=== PATIENT | female | born 1985 | race Hispanic/Latino ===

== ENCOUNTER 2024-12-27 08:48 | Emergency (ER) | payer SELFPAY ==
[2024-12-27 08:57] VITALS: BP 128/71
[2024-12-27 09:21] VITALS: BMI 21.5
--- NOTE | 2024-12-27 10:00 | ED.GENMED ---
History of Present Illness
General
Chief Complaint: Headache
Time Seen by Provider: 12/27/24 09:17
History of Present Illness
History of Present Illness:
39-year-old otherwise healthy female presents to the emergency department for evaluation of headache associated with dizziness and weakness ongoing for the past 7 days. She reports a history of frequent premenstrual headaches and states the pain
feels similar however does not typically have dizziness and weakness with this. Denies vertigo. No vision changes or diplopia. No chest pain or shortness of breath. No recent fevers or chills. Took acetaminophen this morning without improvement
Past History
Past History
ED Past Medical History: None
ED Past Surgical History:
Social History
Tobacco: Non-smoker
Alcohol: None
Personal: Single
Living: with family
Employment: Employed
Review of Systems
Review of Systems
Allergies reviewed?: Yes
All Other Systems: ROS reviewed and negative except as documented in HPI and ROS
Phy Exam
Physical Exam
Physical Exam:
GEN: Well appearing, NAD, WDWN
HEENT: Oral mucosa moist, no scleral icterus, no nasal congestion
Cardiac: Regular rate and rhythm, no murmurs
Lung: No respiratory distress, no tachypnea
MSK: No gross deformity or injuries
Skin: Good color, no pallor or jaundice, no rashes
Neuro: AO x3; CN II-XII grossly intact. BUE strength 5/5 in all rushing, sensation intact and symmetric. BLE strength 5/5 in all rushing, sensation intact and symmetric
Psych: Calm, cooperative
Course
Orders/Labs/Results
Orders:
Orders
12/27/24 09:59
0.9% Sodium Chloride 1000 ml [Nss] 1,000 ml IV BOLUS
Ketorolac [Toradol] 15 mg IV NOW STA
Metoclopramide [Reglan] 10 mg IV NOW STA
Test Result ONCE
12/27/24 10:20
Complete Blood Count/No Diff Urgent
Comprehensive Metabolic Panel Urgent
HCG, Serum Qualitative Screen Urgent
TSH Urgent
12/27/24 11:31
Add On- LAB Urgent
Tests Added?: TSH
Abnormal Lab Results
12/27/24
10:20
RBC 3.95 L 10^6/uL
(4.20-5.40)
Hgb 11.8 L g/dL
(12.0-16.0)
Hct 35.0 L %
(37.0-47.0)
MPV 10.8 H fL
(7.4-10.4)
Chloride 111 H mmol/L
(98-107)
Creatinine 0.5 L mg/dL
(0.6-1.0)
12/27/24 10:20
12/27/24 10:20
Vital Signs
Initial and Last Documented VS:
Initial Vital Signs
Temp Pulse Resp BP Pulse Ox
98.2 F 70 16 128/71 98
12/27/24 08:57 12/27/24 08:57 12/27/24 08:57 12/27/24 08:57 12/27/24 08:57
Last Documented Vital Signs
Temp Pulse Resp BP Pulse Ox
97.5 F 66 18 96/64 100
12/27/24 11:51 12/27/24 11:51 12/27/24 11:51 12/27/24 11:51 12/27/24 11:51
MDM/Problems Addressed
MDM/Problems Addressed:
Unclear etiology to the patient's lightheadedness, she is clinically well-appearing on exam, she has no abnormal neurologic findings and headache was easily treated with conventional migraine meds thus I have a low suspicion for central nervous
system lesion that would benefit from a CT. She has mild anemia however this appears to be comparable to past labs thus is not likely causative. Encourage primary care follow-up as an outpatient if symptoms continue. She did report improvement in
symptoms at time of discharge
*Critical Care Note
Total Time (30-74mins, 75-104mins- exclusive of procedures): Not Applicable
ED Attending Note
-
Portions of this chart may have been created with voice recognition software.� Occasional wrong word or��sound alike� substitutions may have occurred due to the inherent limitations of voice recognition software.
Discharge Plan
Departure
Patient Disposition: Home (Routine Discharge)
Date of Disposition: 12/27/24
Time of Disposition: 11:31
Patient with high blood pressure during this ER visit?: No
Discharge Problem:
Intermittent lightheadedness
Instructions: Dizziness in adults - ED discharge instructions
Prescriptions:
No Action
No Current Medications
0
Referrals:
Sadie Mann DO [Family Provider] -
Activity Restrictions/Additional Instructions:
Please follow-up with your primary care physician for further evaluation of your symptoms
Interventions
Interventions:
*Risk Screen - Suicide Last Done: 12/27/24 08:57
*General Assessment Last Done: 12/27/24 11:53
*Neglect/Abuse Screening Last Done: 12/27/24 08:57
*ED- Fall Risk Assessment Last Done: 12/27/24 11:53
*ED COVID-19 Vaccine History Last Done: 12/27/24 11:53
*Nursing Disposition Last Done: 12/27/24 11:53
ED- Neurological Assessment Last Done: 12/27/24 09:22
Discharge Date and Time
Discharge Date/Time: 12/27/24 11:57
Print Language: NEPALI
[2024-12-27] MEDS: NSS 1000 IV (10:21)
[2024-12-27] MEDS: TORADOL 15 MG IV (10:30)
[2024-12-27] MEDS: REGLAN 10 MG IV (10:30)
[2024-12-27 10:32] LABS: Hemoglobin 11.8 g/dL (12.0-16.0); Mean Corp Hgb Conc. 33.7 g/dL (33.0-37.0); Mean Corpuscular Hgb 29.9 pg (27.0-31.0); Mean Corpuscular Volume 88.6 fL (81.0-99.0); Mean Platelet Volume 10.8 fL (7.4-10.4); Platelet Count 172 10^3/uL (130-400); Red Blood Cell Count 3.95 10^6/uL (4.20-5.40); Red Cell Dist. Width 12.3 % (11.5-14.5); White Blood Cell Count 6.8 10^3/uL (4.8-10.8)
[2024-12-27 10:45] LABS: HCG, Serum Qualitative Screen Negative
[2024-12-27 10:48] LABS: ALT (SGPT) 15 U/L (0-35); AST (SGOT) 19 U/L (14-36); Albumin 4.4 g/dl (3.5-5.0); Alkaline Phosphatase 66 U/L (38-126); Blood Urea Nitrogen 11 mg/dl (7-17); Calcium 9.2 mg/dl (8.4-10.2); Carbon Dioxide 26 mmol/L (22-30); Chloride 111 mmol/L (98-107); Estimated Creatinine Clearance > 125 ml/min; Glucose 92 mg/dl (70-99); Sodium 143 mmol/L (135-145); Total Bilirubin 0.4 mg/dl (0.2-1.3); Total Protein 7.4 g/dl (6.3-8.2); eGFR > 60.00
[2024-12-27 11:51] VITALS: BP 96/64
[2024-12-27 14:29] LABS: TSH 3.17 uIU/ml (0.47-4.68)
== END 2024-12-27 11:57 | disposition home or self-care (01) ==
LOC: EMR 08:48
PROVIDERS: Physician Assistant; EMERGENCY PHYSICIAN Emergency Medicine; FAMILY PHYSICIAN Family Medicine
DX: R42 Dizziness and giddiness (principal); R51.9 Headache, unspecified; D64.9 Anemia, unspecified
CPT/HCPCS: 96374; 96375; 96361; 99284; 80053; 84443; 84703; 85027